=== PATIENT | female | born 1990 | race Caucasian/White ===

== ENCOUNTER 2017-06-04 19:38 | Emergency (ER) | payer MEDICAID ==
[~2017-06-04] VITALS: Ht 160 cm; Wt 72.0 kg
[2017-06-04 19:42] VITALS: Ht 160 cm; Wt 72.0 kg
[2017-06-04] MEDS ORDERED: IBUPROFEN 600 MG TAB PO ONE (20:30)
--- NOTE | 2017-06-04 21:08 | RADRPT ---
PROCEDURE: XR Right Ankle. CLINICAL INDICATION: Right ankle pain. TECHNIQUE: 3 views. Frontal, lateral, and oblique. COMPARISON: None. FINDINGS: There is an acute vertical fracture through the posterior malleolus seen only on the lateral view. T here is no other fracture and there is no dislocation. There is marked lateral soft tissue swelling. The articular surfaces are otherwise intact. There is no lytic or blastic lesion. There is no radiopaque foreign body. IMPRESSION: 1. Acute vertical fracture through the posterior malleolus seen only on the lateral view. 2. Marked lateral soft tissue swelling. 3. Otherwise normal images of the right ankle. RPTAT: QQ .Prashant Underwood MD, Date Time Electronically viewed and signed by .Prashant Underwood MD, on 06/04/2017 21:08 .R/
--- NOTE | 2017-06-04 21:10 | RADRPT ---
PROCEDURE: XR Right Foot. CLINICAL INDICATION: Right foot pain. TECHNIQUE: 3 views. Frontal, lateral, and oblique. COMPARISON: None. FINDINGS: There is an acute vertical nondisplaced fracture through the posterior malleolus of the distal tibia seen only on the lateral view. There is no other fracture and there is no dislocation. There is soft tissue swelling overlying the fracture. The articular surfaces are otherwise intact. There is no lytic or blastic lesion. There is no radiopaque foreign body. IMPRESSION: 1. Acute vertical nondisplaced fracture through the base to malleolus of the distal tibia. 2. Soft tissue swelling overlying the fracture. 3. Otherwise normal images of the right foot. RPTAT: QQ .Prashant Underwood MD, MD Date Time Electronically viewed and signed by .Prashant Underwood MD, on 06/04/2017 21:09 .R/
[2017-06-04] MEDS ORDERED: IBUP-1542 PO (21:38)
--- NOTE | 2017-06-04 21:50 | ERD ---
ER Documentation Chief Complaint Date/Time DATE: 06/04/17 TIME: 21:42 Chief Complaint sp ground level fall, right ankle swelling/pain HPI 26-year-old female patient with no significant past medical history presents to the ED complaining of a right ankle injury that occurred earlier today. Reports that she was skateboarding and accidentally inverted her right foot. Reports that she felt an instantaneous pain that describes as sharp. Patient rates her pain as an 8 out of 10. Denies any head or neck injuries. Denies any fever, chills, weakness, numbness or tingling, loss of sensation, loss of range of motion. Reports that it is painful to bear weight. ROS All systems reviewed and are negative except as per history of present illness. Medications Home Meds Active Scripts Ibuprofen* (Motrin*) 600 Mg Tab, 600 MG PO Q6, #30 TAB Prov:REY LOPEZ PA-C 06/04/17 Allergies Allergies: Coded Allergies: No Known Allergy (Unverified , 06/04/17) PMhx/Soc Medical and Surgical Hx: pt denies Medical Hx, pt denies Surgical Hx History of Surgery: No Anesthesia Reaction: No Hx Neurological Disorder: No Hx Respiratory Disorders: No Hx Cardiac Disorders: No Hx Psychiatric Problems: No Hx Miscellaneous Medical Probl: No Hx Alcohol Use: Yes Hx Substance Use: No Hx Tobacco Use: No Smoking Status: Never smoker Physical Exam Vitals Vital Signs Date Time Temp Pulse Resp B/P Pulse Ox O2 Delivery O2 Flow Rate FiO2 06/04/17 19:42 97.8 69 20 123/69 100 Physical Exam Const: [id number], well-nourished. In no acute distress. Head: Atraumatic, normocephalic Eyes: Normal Conjunctiva without injection ENT: Normal external ear, nose and mouth. Neck: Full range of motion. No meningismus. Resp: Clear to auscultation bilaterally. No wheezing, rhonchi, rales, or crackles. No accessory muscle use. No retractions. Cardio: Regular rate and rhythm, no murmurs Skin: No petechiae or rashes Back: No midline tenderness. No CVA tenderness. Ext: No cyanosis, or edema. Cap refill less than 2 seconds. Distal pulses intact bilaterally. Edema noted over the right lateral malleolus. No erythema. Tenderness to palpation of the right lateral malleolus. No deformities noted. Limited range of motion with flexion, extension, rotational movements. Neur: Awake and alert. Normal gait and coordination. Muscle strength 5/5. Sensation intact bilaterally. Psych: Normal Mood and Affect Results 24 hrs Current Medications Medications (Trade) Dose Ordered Sig/Akil Route PRN Reason Start Time Stop Time Status Last Admin Dose Admin Ibuprofen (Motrin) 600 mg ONCE ONCE PO 06/04/17 20:30 06/04/17 20:31 DC 06/04/17 20:12 Procedures/MDM 26-year-old female patient with no significant past medical history presents to the ED complaining of a right ankle injury. Patient is afebrile and nontoxic- appearing. Patient has normal vital signs. A right ankle and foot x-ray was ordered to further evaluate patient. PROCEDURE: XR Right Ankle. CLINICAL INDICATION: Right ankle pain. TECHNIQUE: 3 views. Frontal, lateral, and oblique. COMPARISON: None. FINDINGS: There is an acute vertical fracture through the posterior malleolus seen only on the lateral view. There is no other fracture and there is no dislocation. There is marked lateral soft tissue swelling. The articular surfaces are otherwise intact. There is no lytic or blastic lesion. There is no radiopaque foreign body. IMPRESSION: 1. Acute vertical fracture through the posterior malleolus seen only on the lateral view. 2. Marked lateral soft tissue swelling. 3. Otherwise normal images of the right ankle. PROCEDURE: XR Right Foot. CLINICAL INDICATION: Right foot pain. TECHNIQUE: 3 views. Frontal, lateral, and oblique. COMPARISON: None. FINDINGS: There is an acute vertical nondisplaced fracture through the posterior malleolus of the distal tibia seen only on the lateral view. There is no other fracture and there is no dislocation. There is soft tissue swelling overlying the fracture. The articular surfaces are otherwise intact. There is no lytic or blastic lesion. There is no radiopaque foreign body. IMPRESSION: 1. Acute vertical nondisplaced fracture through the base to malleolus of the distal tibia. 2. Soft tissue swelling overlying the fracture. 3. Otherwise normal images of the right foot. Patient is placed in a posterior ankle splint. Crutches were given to patient to help with ambulation. Splint Assessment: Neurovascularly intact pre and post splint placement with good fit. Patient has an acute vertical nondisplaced fracture through the base to malleolus of the distal tibia. Patient's extremity symptoms have stabilized while they have been evaluated in the department and are appropriate for outpatient follow up. No evidence of dislocations, compartment syndrome, neurologic injury, vascular injury, open joint, open fracture, tendon laceration , septic arthritis, osteomyelitis, DVT, foreign body, or other emergent conditions. Discharge medications: Ibuprofen Follow up with primary care physician in 1-2 days. Instructed patient to return to the ED sooner for any worsening symptoms. Patient's questions were answered. Patient understood and agreed with discharge plan. Patient discharged stable. Departure Diagnosis: Primary Impression: Ankle injury Encounter type: initial encounter Laterality: right Qualified Code: S99.911A - Injury of right ankle, initial encounter Condition: Stable Patient Instructions: Fracture, Ankle (General) Referrals: [facility] YOU HAVE RECEIVED A MEDICAL SCREENING EXAM AND THE RESULTS INDICATE THAT YOU DO NOT HAVE A CONDITION THAT REQUIRES URGENT TREATMENT IN THE EMERGENCY DEPARTMENT. FURTHER EVALUATION AND TREATMENT OF YOUR CONDITION CAN WAIT UNTIL YOU ARE SEEN IN YOUR DOCTORS OFFICE WITHIN THE NEXT 1-2 DAYS. IT IS YOUR RESPONSIBILITY TO MAKE AN APPOINTMENT FOR [facility]. IF YOU HAVE A PRIMARY DOCTOR --you should call your primary doctor and schedule an appointment IF YOU DO NOT HAVE A PRIMARY DOCTOR YOU CAN CALL OUR PHYSICIAN REFERRAL HOTLINE AT IF YOU CAN NOT AFFORD TO SEE A PHYSICIAN YOU CAN CHOSE FROM THE FOLLOWING [facility] [address] [facility]. [facility] [address] [facility] [facility] [address] [facility] [facility] [address] [facility]. [facility] [address] [facility]. [facility]. [address] [facility] YOU HAVE RECEIVED A MEDICAL SCREENING EXAM AND THE RESULTS INDICATE THAT YOU DO NOT HAVE A CONDITION THAT REQUIRES URGENT TREATMENT IN THE EMERGENCY DEPARTMENT. FURTHER EVALUATION AND TREATMENT OF YOUR CONDITION CAN WAIT UNTIL YOU ARE SEEN IN YOUR DOCTORS OFFICE WITHIN THE NEXT 1-2 DAYS. IT IS YOUR RESPONSIBILITY TO MAKE AN APPOINTMENT FOR [facility]. IF YOU HAVE A PRIMARY DOCTOR --you should call your primary doctor and schedule and appointment IF YOU DO NOT HAVE A PRIMARY DOCTOR YOU CAN CALL OUR PHYSICIAN REFERRAL HOTLINE AT . IF YOU CAN NOT AFFORD TO SEE A PHYSICIAN YOU CAN CHOSE FROM THE FOLLOWING [facility] INSTITUTIONS: [facility] [address] [place] [address] [facility] [address] [place] [address] [facility] [address] [place] [address] [facility] Urgent Care 7 a.m.- 11 p.m. Every Day of the Week NO APPOINTMENT OR AUTHORIZATION NEEDED SO [facility] Hours: Mon-Fri 9:00 AM - 5:00 PM Additional Instructions: Call your primary care doctor TOMORROW for an appointment to obtain a referral to get further evaluation and treatment by an orthopedic physician.See the doctor sooner or return here if your condition worsens before your appointment time- increased swelling/pain or redness, fever, etc. REY LOPEZ PA-C Jun 04, 2017 21:50
== END 2017-06-04 21:49 | disposition home or self-care (01) ==
LOC: FTE 19:38
DX: S99.911A Unspecified injury of right ankle, initial encounter (principal); V00.131A Fall from skateboard, initial encounter
CPT/HCPCS: 29515; 73610; 73630; Z7502; Z7610